=== PATIENT | female | born 1950 | race African-American/Black ===

== ENCOUNTER 2021-06-23 12:30 | Emergency (ER) | payer MEDICARE, MEDICAID ==
[~2021-06-23] VITALS: Ht 165.1 cm; Wt 65.0 kg
[2021-06-23 13:34] LABS: BASOPHILS % 0.4 % (0.0-2.0); HEMATOCRIT. 39.9 % (36.0-48.0); HEMOGLOBIN. 13.5 g/dL (12.0-16.0); LYMPHOCYTES % 8.5 % (20.0-50.0); MEAN CORPUSCULAR HEMOGLOBIN 29.8 pg (28.0-32.0); MEAN CORPUSCULAR VOLUME 88.3 fL (81.0-99.0); MEAN PLATELET VOLUME 9.1 fl (7.4-10.4); MONOCYTES % 10.7 % (2.0-8.0); NEUTROPHILS % 80.4 % (40.0-76.0); PLATELET 235 x1000/uL (130-400); RED BLOOD CELL COUNT 4.52 mill/uL (4.2-5.4); RED CELL DISTRIBUTION WIDTH 14.2 % (11.6-14.6)
[2021-06-23 13:45] LABS: CHLORIDE 106 mEq/L (98-107)
[2021-06-23 18:00] VITALS: BP 101/77
[2021-06-23 19:32] LABS: CLARITY URINE TURBID (CLEAR); COLOR URINE YELLOW (YELLOW); PH URINE 5.5 (4.5-8.0); SPECIFIC GRAVITY URINE 1.024 (1.005-1.030)
[2021-06-23 19:33] LABS: KETONES URINE 3+ (NEGATIVE); OCCULT BLOOD URINE 2+ (NEGATIVE); PROTEIN URINE 2+ (NEGATIVE)
[2021-06-23 19:34] LABS: LEUKOCYTE ESTERASE URINE NEGATIVE (NEGATIVE); NITRITE URINE NEGATIVE (NEGATIVE); UROBILINOGEN URINE 0.2 E.U./dL (0.2-1.0)
== END 2021-06-23 19:45 | disposition home or self-care (01) ==
LOC: ER 12:30
DX: I95.89 Other hypotension (principal); I10 Essential (primary) hypertension; E78.00 Pure hypercholesterolemia, unspecified
CPT/HCPCS: 36415; 71045; 80053; 81003; 83605; 83880; 84145; 84484; 85025; 93005; 99285